=== PATIENT | male | born 1955 | race Caucasian/White ===

== ENCOUNTER 2021-04-26 10:00 | Day surgery (SDC) | payer MEDICARE ==
[2021-04-26] VITALS (8 sets, daily range): BP systolic 136–169; BP diastolic 84–96
[~2021-04-26] VITALS: Ht 182.9 cm; Wt 95.7 kg
[2021-04-26] MEDS ORDERED: PROPOFOL 10 MG/ML 20ML VIAL IV ONE (10:25)
[2021-04-26] MEDS ORDERED: NACL 0.9% 1000ML 1,000 ML IV ONE (10:34)
[2021-04-26] MEDS ORDERED: POLY17PO52 PO (11:04)
[2021-04-26] MEDS ORDERED: RESPIRIDONE PO (11:04)
[2021-04-26] MEDS ORDERED: CLON1TAB12 PO (11:04)
[2021-04-26] MEDS ORDERED: LACT10SO5 PO (11:04)
[2021-04-26] MEDS ORDERED: CICL34.62 TP (11:04)
[2021-04-26] MEDS ORDERED: TRAZ-185 PO (11:04)
[2021-04-26] MEDS ORDERED: TRAV5DRO OU (11:04)
[2021-04-26] MEDS ORDERED: MELA3CAP2 PO (11:04)
[2021-04-26] MEDS ORDERED: FISH1CAP20 PO (11:04)
[2021-04-26] MEDS ORDERED: HYDR25TA PO (11:04)
[2021-04-26] MEDS ORDERED: CARB15DR2 OU (11:04)
[2021-04-26] MEDS ORDERED: PANT20TA18 PO (11:04)
[2021-04-26] MEDS ORDERED: SELE120S2 TP (11:04)
[2021-04-26] MEDS ORDERED: CALC-1209 PO (11:04)
== END 2021-04-26 12:10 | disposition home or self-care (01) ==
LOC: DAH 10:00
PROVIDERS: ATTEND Internal Medicine Gastroenterology
DX: K92.1 Melena (principal); Z20.822 Contact with and (suspected) exposure to COVID-19; K21.9 Gastro-esophageal reflux disease without esophagitis; K29.70 Gastritis, unspecified, without bleeding; K59.00 Constipation, unspecified; J45.909 Unspecified asthma, uncomplicated; I10 Essential (primary) hypertension; R41.841 Cognitive communication deficit; Z79.899 Other long term (current) drug therapy; Z98.49 Cataract extraction status, unspecified eye
CPT/HCPCS: 43239; 87635; A4215 ×2; A4221; A4222; A4223; A4606; A4620; A4657; A4663; C9803; J2704; J7030

== ENCOUNTER 2024-02-03 08:38 | Day surgery (SDC) | payer MEDICARE ==
[~2024-02-03] VITALS: Ht 190.5 cm; Wt 78.5 kg
[2024-02-03] VITALS (9 sets, daily range): BP systolic 107–133; BP diastolic 62–84; PULSE 50–64; RESP 13–17
[~2024-02-03 08:38] MED LIST: 0.9%NACL 1000ML 1,000 ML IV ONE; CALC-1209 PO; CARB15DR2 OU; CLON0.5T4 PO; DOCU100T9 PO; FISH1CAP20 PO; HYDR25TA PO; ISOP30DR11 OT; LACT10SO5 PO; LANTANOPROST OU; MELA3CAP2 PO; PANT20TA18 PO; POLY17PO52 PO; RESPIRIDONE PO; SELE120S2 TP; TRAZ-187 PO
[2024-02-03] MEDS: 0.9%NACL 1000ML 0 ML IV ONE (09:38)
[2024-02-03] MEDS ORDERED: PROPOFOL 10 MG/ML 20ML VIAL IV ONE (10:43)
== END 2024-02-03 12:15 | disposition home or self-care (01) ==
LOC: ENDO 08:38 → DAH 08:38 → ENDO 12:15
PROVIDERS: ATTEND Internal Medicine Gastroenterology
DX: Z12.11 Encounter for screening for malignant neoplasm of colon (principal); K63.89 Other specified diseases of intestine; K63.5 Polyp of colon; K57.30 Diverticulosis of large intestine without perforation or abscess without bleeding; K21.9 Gastro-esophageal reflux disease without esophagitis; K29.50 Unspecified chronic gastritis without bleeding; K64.1 Second degree hemorrhoids; R41.841 Cognitive communication deficit; K59.00 Constipation, unspecified; F84.0 Autistic disorder; Z98.49 Cataract extraction status, unspecified eye
CPT/HCPCS: 45385; J7030 ×2; J2704; A4620; A4215 ×2; A4223; A7002; A4222; A4221; A4663; A4606; 45380; J3490